=== PATIENT | female | born 1985 | race Caucasian/White ===

== ENCOUNTER → 2019-12-17 | Outpatient (REF) | payer BC | LOC: M LAB REF 12:09 | PROVIDERS: ATTEND Obstetrics & Gynecology | DX: Z34.83 Encounter for supervision of other normal pregnancy, third trimester (principal) ==

== ENCOUNTER → 2019-12-24 | Outpatient (REF) | payer BC ==
[~2019-12-24] MED LIST: LEVO75TA4 PO; NEXI20TA PO; PRENTAB55 PO
[2019-12-24 13:45] LABS: FREE T4 1.2 NG/DL (0.76-1.46); THYROID STIMULATING HORMONE 1.44 uIU/ML (0.358-3.740)
[2019-12-25 14:52] LABS: FREE T3 2.3 PG/ML (2.2-4.0)
== END ==
LOC: M LAB REF 12:04
PROVIDERS: ATTEND Obstetrics & Gynecology
DX: E03.9 Hypothyroidism, unspecified (principal)

== ENCOUNTER → 2019-12-28 | Outpatient (CLI) | payer BC ==
--- NOTE | 2019-12-29 02:15 | REP ---
Clinical: well-being Comparison: None . Findings: Examination demonstrates a single live intrauterine in cephalic presentation. motion is identified by technologist. Placenta is noted anterior and grade I without evidence for placenta previa or abruption. Amniotic fluid volume is normal. Cervix measures 3.2 cm in length and appears closed. No evidence for nuchal cord. Gestational age by current measurements 36 weeks 1 day with DEXTER 01/24/2020 . FHR equals 134 beats per minute. Amniotic fluid index: 15.7 cm Estimated weight 3019 grams ( 61st percentile). Impression: Single live advanced gestation in cephalic presentation demonstrating appropriate estimated weight and normal amniotic fluid volume.
== END ==
LOC: M WHC 14:12
PROVIDERS: ATTEND Obstetrics & Gynecology
DX: Z36.2 Encounter for other antenatal screening follow-up (principal); Z3A.36 36 weeks gestation of pregnancy

== ENCOUNTER → 2020-01-11 | Outpatient (CLI) | payer BC ==
[~2020-01-11] MED LIST changes: +IBUP80TA PO; +PERCOCET PO
== END ==
LOC: M LABSMTC 09:51
PROVIDERS: ATTEND Anesthesiology
DX: Z01.818 Encounter for other preprocedural examination (principal); Z11.59 Encounter for screening for other viral diseases
CPT/HCPCS: C9803; U0003

== ENCOUNTER 2020-01-14 07:41 | Inpatient (IN) | payer BC ==
[~2020-01-14] VITALS: Ht 165.1 cm; Wt 113.6 kg
[2020-01-14] VITALS (8 sets, daily range): BP systolic 98–116; BP diastolic 37–58
[~2020-01-14 07:41] MED LIST changes: -IBUP80TA PO; -PERCOCET PO
[2020-01-14] MEDS ORDERED: LR 1,000 ML IV SCH ×2 (08:09→11:45)
[2020-01-14] MEDS ORDERED: LACTATED RINGER'S 1000 ML IV STA (08:09)
[2020-01-14] MEDS ORDERED: BICITRA 30ML SOLN UDC PO ONE (08:30)
[2020-01-14] MEDS ORDERED: ceFAZolin SOD 2 GM in IV 1 EA IV ONE (08:30)
[2020-01-14 09:02] LABS: HEMATOCRIT 32.3 % (36.0-47.0); HEMOGLOBIN 10.9 g/dl (12.0-15.5); MEAN CORPUSCULAR HEMOGLOBIN 26.3 pg (27.0-33.0); MEAN CORPUSCULAR HGB CONC 33.7 g/dl (32.0-36.5); MEAN CORPUSCULAR VOLUME 77.8 fl (80.0-96.0); PLATELET COUNT, AUTOMATED 215 10^3/uL (150-450); RED BLOOD COUNT 4.15 10^6/uL (4.00-5.40); WHITE BLOOD COUNT 8.6 10^3/uL (4.0-10.0)
[2020-01-14] MEDS ORDERED: ONDANSETRON 4MG/2ML VIAL As Ordered ONE (09:46)
[2020-01-14] MEDS ORDERED: MORPHINE PRES-FREE INJ 10 MG/10 ML VIAL (J2274) As Ordered ONE (09:46)
[2020-01-14] MEDS ORDERED: PHENYLEPHRINE 10MG/ML 1ML VIAL (J2370 PER 1) As Ordered ONE (09:46)
[2020-01-14] MEDS ORDERED: OXYTOCIN INJ 10 UNITS/ML VIAL (J2590) As Ordered ONE (09:46)
[2020-01-14] MEDS ORDERED: METOCLOPRAMIDE INJ 10MG/2ML VIAL (J2765 PER 1) IV PRN (10:00)
[2020-01-14] MEDS ORDERED: NALOXONE INJ 0.4MG/1ML VIAL (J2310 PER 1MG) IV PRN ×2 (10:00)
[2020-01-14] MEDS ORDERED: NALBUPHINE HCL 10 MG/ML AMP (J2300) IV PRN (10:00)
[2020-01-14] MEDS ORDERED: ONDANSETRON 4MG/2ML VIAL IV PRN ×2 (10:00→11:45)
[2020-01-14] MEDS ORDERED: diphenhydrAMINE 50MG/ML VIAL (J1200) IV PRN (10:00)
[2020-01-14] MEDS ORDERED: ePHEDrine SULFATE 25 MG/5 ML(5MG/ML) SYRINGE As Ordered ONE (10:13)
[2020-01-14] MEDS ORDERED: ATROPINE SULF 0.4 MG/ML 1ML VIAL (J0461) As Ordered ONE (10:13)
[2020-01-14] MEDS ORDERED: ACETAMINOPHEN 1000MG 100ML IV BTL (OFIRMEV) (J0131 PER 10MG) As Ordered ONE (10:32)
[2020-01-14 10:44] LABS: CORD GAS ABE A -1.8; CORD GAS HCO3 A 25.4 MEQ/L; CORD GAS O2 SAT A 24.2 %; CORD GAS PCO2 A 52.4 mmHg; CORD GAS PH A 7.304 UNITS; CORD GAS PO2 A 14.1 mmHg; CORD GAS SBC A 21.1 MEQ/L
[2020-01-14] MEDS ORDERED: propofoL 200 MG/20 ML VIAL As Ordered ONE (10:44)
[2020-01-14 10:46] LABS: CORD GAS ABE V -1.7; CORD GAS HCO3 V 23.9 MEQ/L; CORD GAS O2 SAT V 64.6 %; CORD GAS PCO2 V 43.6 mmHg; CORD GAS PH V 7.357 UNITS; CORD GAS PO2 V 24.9 mmHg; CORD GAS SBC V 22.2 MEQ/L; CORD GAS TCO2 V 25.3 MEQ/L
[2020-01-14] MEDS ORDERED: fentaNYL 100 MCG/2 ML INJECTION (J3010) As Ordered ONE ×2 (10:46→11:54)
[2020-01-14] MEDS ORDERED: KETOROLAC 30 MG/ML 1ML VIAL IV PRN (11:19)
[2020-01-14] MEDS ORDERED: KETOROLAC 60 MG/2 ML VIAL As Ordered ONE (11:20)
[2020-01-14] MEDS ORDERED: OXYTOCIN DRIP 30 UNITS in IV 1 EA IV SCH (11:22)
[2020-01-14] MEDS ORDERED: MEASLES,MUMPS,RUBELLA VACCINE INJ (MMR-II) (90707) SC SCH (11:30)
[2020-01-14] MEDS ORDERED: RHOGAM 300 MCG (1500 IU) INJ (J2790) IM SCH (11:30)
[2020-01-14] MEDS ORDERED: OXYTOCIN 30 UNITS IN 0.9% NaCl 500ML IV BAG (J2590) As Ordered ONE (11:35)
[2020-01-14] MEDS ORDERED: oxyCODONE 5MG TAB PO PRN (11:45)
[2020-01-14] MEDS ORDERED: fentaNYL 100 MCG/2 ML INJECTION (J3010) IV PRN (11:45)
[2020-01-14] MEDS: PRENATAL VITAMINS CHEWABLE TABLET PO SCH (13:37)
[2020-01-14] MEDS: KETOROLAC 30 MG/ML 1ML VIAL IV SCH ×2 (17:11→23:47)
[2020-01-14] MEDS ORDERED: LACTATED RINGER'S 1000 ML IV ONE (18:00)
[2020-01-15 02:00] VITALS: BP 114/56
[2020-01-15] MEDS: LEVOTHYROXINE 75MCG TABLET (0.075MG) PO SCH (05:43)
[2020-01-15] MEDS: KETOROLAC 30 MG/ML 1ML VIAL IV SCH (05:44)
[2020-01-15 06:00] VITALS: BP 121/64
[2020-01-15 07:13] LABS: HEMATOCRIT 25.8 % (36.0-47.0); MEAN CORPUSCULAR HEMOGLOBIN 26.5 pg (27.0-33.0); MEAN CORPUSCULAR HGB CONC 33.3 g/dl (32.0-36.5); MEAN CORPUSCULAR VOLUME 79.6 fl (80.0-96.0); PLATELET COUNT, AUTOMATED 193 10^3/uL (150-450); RED BLOOD COUNT 3.24 10^6/uL (4.00-5.40); WHITE BLOOD COUNT 10.9 10^3/uL (4.0-10.0)
[2020-01-15 07:17] LABS: HEMOGLOBIN 8.6 g/dl (12.0-15.5)
[2020-01-15] MEDS: PRENATAL VITAMINS CHEWABLE TABLET PO SCH (08:33)
[2020-01-15] MEDS ORDERED: IBUP80TA PO (09:08)
[2020-01-15] MEDS ORDERED: PERCOCET PO (09:08)
[2020-01-15 10:15] VITALS: BP 112/56
[2020-01-15] MEDS: PERCOCET 5MG/325MG TAB PO PRN ×2 (12:04→19:42)
[2020-01-15] MEDS: IBUPROFEN 800 MG TAB PO SCH ×3 (13:00→20:55)
[2020-01-15 14:00] VITALS: BP 115/58
[2020-01-15 18:00] VITALS: BP 129/57
[2020-01-15 22:00] VITALS: BP 138/63
[2020-01-16 02:00] VITALS: BP 141/63
[2020-01-16] MEDS: IBUPROFEN 800 MG TAB PO SCH (05:32)
[2020-01-16] MEDS: LEVOTHYROXINE 75MCG TABLET (0.075MG) PO SCH (05:32)
[2020-01-16 06:00] VITALS: BP 115/55
--- NOTE | 2020-01-16 07:44 | DS.PDOC ---
Discharge Summary General Date of Admission Jan 14, 2020 at 07:41 Date of Discharge January 16, 2020 Discharge Summary PROCEDURES PERFORMED DURING STAY: Repeat section and bilateral tubal ligation. ADMITTING DIAGNOSES: 1. Prior section. 2. Satisfied parity DISCHARGE DIAGNOSES: 1. Repeat section with satisfied parity. COMPLICATIONS/CHIEF COMPLAINT: Term , Elective Repeat Se ction... HISTORY OF PRESENT ILLNESS: 34yo G 4 now P 2021. Admitted by Dr Kauffman January for repeat section and bilateral tubal ligation. HOSPITAL COURSE: Ms Nicole reports adequate pain management. She is tolerating regular diet, voiding and passing flatus. DISCHARGE MEDICATIONS: Please see below. ALLERGIES: Please see below. PHYSICAL EXAMINATION ON DISCHARGE: VITAL SIGNS: Please see below. GENERAL: No distress HEENT: WNL NECK: Supple CARDIOVASCULAR EXAMINATION: HRR, normotensive RESPIRATORY EXAMINATION: Clear and unlabored ABDOMINAL EXAMINATION: Wound clean, dry. Steristrips intact. No s/s infection EXTREMITIES: Equal strength and motion SKIN: Intact NEUROLOGICAL EXAMINATION: Grossly intact PSYCHIATRIC EXAMINATION: Appropriate LABORATORY DATA: Please see below. PROGNOSIS: Good ACTIVITY: As tolerated. Pelvic rest DIET: As tolerated DISCHARGE PLAN: Home today. Routine precautions DISPOSITION: Home. DISCHARGE INSTRUCTIONS: 1. Pelvic rest. 2. Oral medications as directed 3. Call with fever, nausea, vomiting, chills, foul lochia or wound exudates 4. RTO 2 wks and 6 wks DISCHARGE CONDITION: Stable. TIME SPENT ON DISCHARGE: Greater than minutes. Vital Signs/I&Os Vital Signs Date Time Temp Pulse Resp B/P (MAP) Pulse Ox O2 Delivery O2 Flow Rate FiO2 01/16/20 06:00 97.0 76 18 115/55 (75) 96 Room Air I&O- Last 24 Hours up to 6 AM 01/16/20 05:59 Output Total 200 ml Balance -200 ml Discharge Medications Scheduled Esomeprazole Magnesium (Nexium 24Hr) 20 Mg Tablet., 20 MG PO DAILY, (Reported) Levothyroxine Sodium (Levothyroxine Sodium) 75 Mcg Tablet, 75 MCG PO DAILY, (Reported) Rbo683/Iron Fum/Folic/Docusate ( 19 Tablet) 1 Each Tablet, 1 TAB PO DAILY, (Reported) Scheduled PRN Ibuprofen (Ibuprofen) 800 Mg Tablet, 800 MG PO Q8H PRN for ABDOMINAL PAIN Oxycodone/Acetaminophen (Oxycodone-Acetaminophen 5-325) 1 Each Tablet, 1 TAB PO Q4H PRN for MILD/MODERATE PAIN (PS 1-7) Allergies Coded Allergies: No Known Allergies (Unverified , 01/07/20) Nolvia Mackey CNM Jan 16, 2020 07:44
[2020-01-16] MEDS: PRENATAL VITAMINS CHEWABLE TABLET PO SCH (08:54)
[2020-01-16] MEDS: PERCOCET 5MG/325MG TAB PO PRN (10:58)
--- NOTE | 2020-01-19 14:28 | RO ---
DATE OF PROCEDURE: 01/14/2020 Melanie is a 34-year-old female with history of prior section for term elective repeat section. The patient also desires tubal ligation. PREOPERATIVE DIAGNOSES: 1. Term for elective repeat section. 2. Multiparity desires permanent tubal sterilization. POSTOPERATIVE DIAGNOSES: 1. Term for elective repeat section. 2. Multiparity desires permanent tubal sterilization. 3. Dense pelvic adhesion. PROCEDURE: 1. Repeat section. 2. Bilateral tubal ligation with left salpingectomy. 3. Lysis of adhesion. SURGEON: Dr. Yon Kauffman CAMELID FIBER SORTER: ANESTHESIA: Spinal. COMPLICATIONS: None. ESTIMATED BLOOD LOSS: 800 mL. COMPLICATIONS: None. PROCEDURE: After obtaining informed consent, the patient was taken to the operating room where spinal anesthetic was found to be adequate. She was then draped and prepped in the usual sterile fashion in the supine position. At this point, an elliptical incision was made over the old scar. This was carried down to the fascia. Fascia was incised in midline fashion and carried through laterally. Superior aspect of the fascia was then grasped with two Micheal clamps, tented off and dissected off the rectus muscles sharply. The inferior aspect was dissected off in a similar fashion. Rectus muscles were in midline fashion. Peritoneum identified. Peritoneal cavity entered bluntly. At this point, dense bladder and omental adhesions were found. These were taken down. A Mobius skin retractor was placed. A low-transverse uterine incision was made. The was delivered in atraumatic fashion. Nose and mouth bulb suctioned. Cord doubly clamped and cut. The infant was handed over to the waiting warmer. Cord blood and cord gas were sent. Placenta removed manually. Uterus cleared of all clot and debris. The uterine incision was then repaired in two separate layers of #0 Vicryl sutures. At this point, attention was turned to the left adnexa. Upon moving the fallopian tube, excessive amount of bleeding was noted. We were not able to put a Filshie clip on the tube. The entire tube was removed and closed with #3-0 chromic sutures. On the opposite side, a Filshie clip was applied, good hemostasis noted. The pelvis copiously irrigated with normal saline. A piece of Surgicel was wrapped around the left adnexa as well as the lower uterine segment to control surface oozes. Attention turned to the peritoneum which was closed in a running fashion using #2-0 Vicryl. Fascia closed in two separate segments of #0 Vicryl suture. Peritoneum closed in running fashion using #2-0 Vicryl. Skin closed in a subcuticular fashion using #3-0 Vicryl on a Eduardo. Steri-Strips placed. The patient tolerated the procedure well. She was then transferred to the recovery room in stable condition.
== END 2020-01-16 11:25 | disposition home or self-care (01) | DRG 540 ==
LOC: M LDI 07:41 → M OBS 13:43
PROVIDERS: ADMIT Obstetrics & Gynecology; ATTEND Obstetrics & Gynecology
PROC: 0UB70ZZ Excision of Bilateral Fallopian Tubes, Open Approach (ICD-10-PCS; 2020-01-14)
PROC: 10D00Z1 Extraction of Products of Conception, Low, Open Approach (ICD-10-PCS; principal; 2020-01-14 09:30)
DX: O34.211 Maternal care for low transverse scar from previous cesarean delivery (principal); Z37.0 Single live birth; Z3A.39 39 weeks gestation of pregnancy; Z30.2 Encounter for sterilization; O09.523 Supervision of elderly multigravida, third trimester